=== PATIENT | male | born 2000 | race Caucasian/White ===

== ENCOUNTER 2025-06-01 16:38 | Emergency (ER) | payer OTHER, SELFPAY ==
[2025-06-01 16:48] VITALS: BP 118/76; PULSE 83; RESP 16; TEMP 36.7; O2SAT 94
--- NOTE | 2025-06-01 17:00 | DI.CT_ITS ---
Exam(s) CT THORACIC SPINE RECONS EXAM: CT THORACIC SPINE RECONS CLINICAL HISTORY: pain s/p fall. TECHNIQUE: Imaging Protocol: Axial computed tomography images with coronal and sagittal reformatted images were created and reviewed. CONTRAST MATERIAL: Intravenous: None COMPARISON: CT CT CHEST WO from 06/01/2025 FINDINGS: OSSEOUS: There are no fractures of the thoracic vertebra. No listhesis facet joints unremarkable. No osseous canal compromise. No incidental osseous lesions. No scoliosis. IMPRESSION: No fractures in the thoracic spinal column. RADIATION DOSE DELIVERED: 188.79mGy.cm Total DLP DATA REPOSITORY: All CT scans at this facility are submitted to the National Radiology Data Registry (NRDR) Dose Index Registry (DIR) with the [employer] ([employer]). RADIATION OPTIMIZATION: All CT scans at this facility use at least one of these dose optimization techniques: automated exposure control; mA and/or kV adjustment per patient size (includes targeted exams where dose is matched to clinical indication); or iterative reconstruction.
--- NOTE | 2025-06-01 17:00 | DI.CT_ITS ---
Exam(s) CT CERVICAL SPINE WO EXAM: CT CERVICAL SPINE WO CLINICAL HISTORY: pain s/p fall. TECHNIQUE: Imaging Protocol: Axial computed tomography images with coronal and sagittal reformatted images were created and reviewed COMPARISON: CT CT CHEST WO from 06/01/[address] THORACIC SPINE RECONS from 06/01/2025 FINDINGS: CERVICAL SPINE: There is a small 3 x 2 mm osseous density off the anterosuperior aspect of the C6 vertebral body, possibly trauma related in this 25-year-old patient. Possibly related to some degenerative change although this is a 25-year-old patient and there is no disc space narrowing. Facet joints appear unremarkable at all levels as do the spinous process is. There is no facet joint malalignment. No significant osseous lesions evident. IMPRESSION: There is a small 3 x 2 mm osseous density off the anterior superior aspect of the C6 Vertebral body. Possibly degenerative but there is no disc space narrowing and this is a 25-year-old patient. Therefore cannot assume that this is degenerative change and correlation with site of tenderness recommended. If clinically indicated follow up MRI recommended. Preliminary virtual Radiology report was reviewed Final report called by myself to ER physician 06/01/2025 at 9:04 p.m. RADIATION DOSE DELIVERED: 342.26mGy.cm Total DLP DATA REPOSITORY: All CT scans at this facility are submitted to the National Radiology Data Registry (NRDR) Dose Index Registry (DIR) with the [employer] ([employer]). RADIATION OPTIMIZATION: All CT scans at this facility use at least one of these dose optimization techniques: automated exposure control; mA and/or kV adjustment per patient size (includes targeted exams where dose is matched to clinical indication); or iterative reconstruction.
--- NOTE | 2025-06-01 17:00 | DI.CT_ITS ---
Exam(s) CT CHEST WO EXAM: CT CHEST WO CLINICAL HISTORY: fall, left sided upper back/scapula pain. TECHNIQUE: Multi planar reconstructions were performed. CONTRAST MATERIAL: None COMPARISON: No exams were available for comparison FINDINGS: CHEST: LUNGS: No evidence of lung contusion, infiltrate nor pleural effusion and no pneumothorax. No rib fractures evident. MEDIASTINUM: No evidence of sternal fracture or mediastinal hematoma . anterior mediastinal fat density is most probably remnant thymus in this age group. There is no incidental intrathoracic adenopathy.No obvious axillary adenopathy CARDIAC: Heart size is normal. There is no pericardial effusion.Caliber of the thoracic aorta is within normal limits. VISUALIZED UPPER ABDOMEN:No significant findings. OSSEOUS: No fractures. No incidental osseous lesions.. IMPRESSION: 1. No significant acute trauma findings on this noninfused study of the chest. Preliminary virtual Radiology report was reviewed. RADIATION DOSE DELIVERED: 188.79mGy.cm Total DLP DATA REPOSITORY: All CT scans at this facility are submitted to the National Radiology Data Registry (NRDR) Dose Index Registry (DIR) with the [employer] (A[employer]). RADIATION OPTIMIZATION: All CT scans at this facility use at least one of these dose optimization techniques: automated exposure control; mA and/or kV adjustment per patient size (includes targeted exams where dose is matched to clinical indication); or iterative reconstruction.
--- NOTE | 2025-06-01 17:07 | ED.GENADUL_ITS ---
Discharge Plan Disposition Patient Disposition: Home Condition: Stable Discharge Details Clinical Impression: Back contusion, Cervical strain Primary Care Provider: None,None ED Provider: Andreas Austin Home Meds and New Rx's Prescriptions: No Action No Known Home Meds Discharge Instructions Additional Instructions: There were no broken bones seen on your CAT scan. Your bruising and hematoma will resolve with time. If you are not improving in 1 to 2 weeks follow-up with either your primary care provider or express care. If you feel more ill, have severe worsening pain or new symptoms such as chest or abdominal pain return to the emergency department for reevaluation HPI General Mode of arrival: ambulatory . Date/Time Provider Initiated Documentation: 06/01/25 16:59 . Limitations to Documentation: no limitations . Information obtained by: patient . History of Present Illness 25 year old M presents to the emergency department with the chief complaint of left upper back pain/scapula pain s/p fall, described as moderate, Quality is described as aching, and it has been constant. No relieving factors improve symptom(s), No exacerbating factors reported . Patient notes denies chest pain and shortness of breath. Patient did receive the following treatments prior to arrival, none Related Data Home Medications ?Medication ?Instructions ?Recorded ?Confirmed Unknown [No Known Home Meds] 05/17/24 0 06/01/25 Allergies Allergy/AdvReac Type Severity Reaction Status Date / Time No Known Allergies Allergy Verified 06/01/25 16:59 General Stated Complaint: Fall/Non TraumaCriteria KATE: 3 Review of Systems All systems reviewed & are unremarkable except as noted in HPI and below Constitutional Constitutional: Denies chills, Denies fever(s) and Denies weakness Cardiovascular Cardiovascular: Denies chest pain and Denies dyspnea Respiratory Respiratory: Denies cough and Denies dyspnea Gastrointestinal Gastrointestinal: Denies abdominal pain, Denies nausea and Denies vomiting Neurologic Neurologic: Denies weakness Exam Const General: no acute distress Orientation: alert HENMT Head: normal to inspection Ears: external ears normal General nose exam: external nose normal Mouth: moist mucous membranes Eyes General: appearance normal, both eyes and all related structures Neck Neck: normal visual inspection Resp Effort & Inspection: normal respiratory effort and able to speak in complete sentences Cardio Rate: regular rate GI Palpation: soft and nontender Back/Spine/Pelvis Back: no CVA tenderness Cervical Spine: cervical muscular tenderness Skin General skin exam: no rashes or lesions noted Neuro General: patient alert and patient oriented x3 Extrem General: normal to inspection Psych Mental Status: mental status grossly normal Course Vital Signs Vital signs: Vital Signs Temperature 36.7 C 06/01/25 16:48 Pulse 83 06/01/25 16:48 Respiratory Rate 16 06/01/25 16:48 Blood Pressure 118/76 06/01/25 16:48 Pulse Oximetry 94 06/01/25 16:48 Temperature 36.7 C 06/01/25 16:48 Temperature Source Oral 06/01/25 16:48 Pulse 83 06/01/25 16:48 Respiratory Rate 16 06/01/25 16:48 Blood Pressure 118/76 06/01/25 16:48 Blood Pressure Position Sitting 06/01/25 16:48 Pulse Oximetry 94 06/01/25 16:48 Oxygen Delivery Method Room Air 06/01/25 16:48 Oxygen Flow Rate 0 06/01/25 16:48 Pain Level 7 06/01/25 16:48 Medical Decision Making 25-year-old male who denies any significant past medical history comes in with left upper back and scapula pain after a fall. He says he was currently a tree when a branch today was standing on snapped and he fell approximately 10 feet and hit the left upper back on a picnic table. Did not hit his head or loss of consciousness. He denies any chest pain, head pain, vomiting, abdominal pain, arm or leg pain. He has no lower back tenderness. He has a hematoma over the left upper back over the scapula. There is overlying abrasions. He also has some mid thoracic spinous process tenderness without palpable or visible deformity in that area. He has left lower lateral paraspinous neck tenderness. No step-offs or deformities. He has no signs of trauma to the head with a GCS of 15. Given his pain I am going to proceed with CT of the C-spine and chest to evaluate for rib and scapular abnormality and recons of the thoracic spine. Patient is stable imaging is unremarkable. He is stable for discharge and will follow-up with either express care or his PCP if symptoms not improving. Return precautions given Differential Diagnosis Differential Diagnosis: fracture, contusion, abrasion PFSH All Active Problems (Updated 06/01/25 @ 19:01 by Andreas Austin MD) Cervical strain (Acute) Back contusion (Acute) Low back pain (Acute) Sciatica, left side (Acute) Social History Smoking/Tobacco Use Status: Current every day Tobacco Type: cigarettes Smoking risk assessment performed?: Yes Alcohol Intake: current Alcohol Intake frequency: a few times a month Alcohol type: beer Substance use type: marijuana Housing: apartment Do you feel safe at home: Yes Do you feel safe in your relationship?: Yes PAWSS Have you Been Recently Intoxicated or Drunk Within the Last 30 days?: No Have you Ever Experienced Previous Episodes of Alcohol Withdrawal?: No Have you ever Experienced Withdrawal Seizures?: No Have you ever Experienced Delirium Tremens(DT)s?: No Have you ever undergone Alcohol Rehabilitation Treatment (i.e, inpt ot outpatient treatment programs)?: No Have you ever Experienced Blackouts?: No Have you ever Combined Alcohol with other Downers within the last 90 days?: No Have you ever Combined Alcohol with any other Substance of Abuse during the last 90 days?: No Positive Blood Alcohol level on Presentation? [PCS.BAL]: No Evidence of Increased Autonomic Activity (i.e. HR>120, tremor, sweating, agitation, nausea)?: No Result: 0
[2025-06-01] MEDS: Tetanus & Diphtheria Tox,ADULT 0.5 ML VIAL IM (17:31)
[2025-06-01 18:51] VITALS: BP 122/78; PULSE 80; RESP 16; O2SAT 96
--- NOTE | 2025-06-01 18:52 | DI.VRAD_ITS ---
PROCEDURE INFORMATION: Exam: CT Cervical Spine Without Contrast Exam date and time: 06/01/2025 5:26 PM Age: 25 years old Clinical indication: Injury or trauma; Blunt trauma; Pain S/P fall TECHNIQUE: Imaging protocol: Computed tomography of the cervical spine without contrast. COMPARISON: No relevant prior studies available. FINDINGS: Bones: No acute fracture. Normal alignment. No significant disc bulge or herniation. No severe spinal canal stenosis. No significant neural foraminal narrowing. Lungs: Lung apices are normal. Soft tissues: Unremarkable. IMPRESSION: No evidence for acute posttraumatic abnormality. Dictated and Authenticated by: Kaley Treviño MD. Orderin Norman Johns MD
--- NOTE | 2025-06-01 18:54 | DI.VRAD_ITS ---
PROCEDURE INFORMATION: Exam: CT Chest Without Contrast; Diagnostic Exam date and time: 06/01/2025 5:31 PM Age: 25 years old Clinical indication: Injury or trauma; Blunt trauma (contusions or hematomas); Fall, left sided upper back/scapula pain TECHNIQUE: Imaging protocol: Diagnostic computed tomography of the chest without contrast. 3D rendering (Not supervised by radiologist): MIP and/or 3D reconstructed images were created by the technologist. COMPARISON: CT CERVICAL SPINE WO 06/01/2025 5:26 PM FINDINGS: Lungs: Unremarkable. No consolidation. No masses. Pleural spaces: Unremarkable. No pneumothorax. No pleural effusion. Heart: Unremarkable. No cardiomegaly. No pericardial effusion. Lymph nodes: Unremarkable. No enlarged lymph nodes. Vasculature: Unremarkable. No aortic aneurysm. Bones/joints: Unremarkable. No acute fracture. Soft tissues: Unremarkable. IMPRESSION: No evidence for acute posttraumatic abnormality. Dictated and Authenticated by: Kaley Treviño MD. Orderin Norman Johns MD
--- NOTE | 2025-06-01 19:28 | DI.VRAD_ITS ---
PROCEDURE INFORMATION: Exam: CT Thoracic Spine Without Contrast Exam date and time: 06/01/2025 5:31 PM Age: 25 years old Clinical indication: Pain in thoracic spine; Pain S/P fall TECHNIQUE: Imaging protocol: Computed tomography of the thoracic spine without contrast. COMPARISON: CT CERVICAL SPINE WO 06/01/2025 5:26 PM FINDINGS: Bones/joints: No acute fracture. Normal alignment. No significant disc bulge or herniation. No severe spinal canal stenosis. No significant neural foraminal narrowing. Soft tissues: Unremarkable. IMPRESSION: No evidence for fracture. Dictated and Authenticated by: Kaley Treviño MD. Orderin Norman Johns MD
== END 2025-06-01 19:06 | disposition home or self-care (01) ==
PROVIDERS: Emergency Provider Emergency Medicine
DX: S16.1XXA Strain of muscle, fascia and tendon at neck level, initial encounter (principal); S20.222A Contusion of left back wall of thorax, initial encounter; M54.50 Low back pain, unspecified; W17.89XA Other fall from one level to another, initial encounter; W22.8XXA Striking against or struck by other objects, initial encounter; Z23 Encounter for immunization
CPT/HCPCS: 99283; 99284; 90471; 71250; 90714; 72125